=== PATIENT | female | born 1995 | race Two or more races ===

== ENCOUNTER 2021-12-05 01:26 | Emergency (ER) | payer MEDICAID, OTHER ==
[~2021-12-05] VITALS: Ht 157.5 cm; Wt 66.7 kg
[2021-12-05 01:28] VITALS: BP 126/81
[2021-12-05] MEDS ORDERED: ONDANSETRON ODT 4 MG TAB PO ONE (01:45)
[2021-12-05] MEDS ORDERED: MORPHINE SULFATE 4 MG/ML SYR/VIAL IM ONE (01:45)
== END 2021-12-05 03:49 | disposition left against medical advice (07) ==
LOC: ER 01:30
DX: R10.11 Right upper quadrant pain (principal); R11.2 Nausea with vomiting, unspecified